=== PATIENT | female | born 1945 | race Caucasian/White ===

== ENCOUNTER 2017-02-07 10:03 | Outpatient (CLI) | payer MEDICARE, OTHER ==
--- NOTE | 2017-02-12 18:27 | MMO ---
BILATERAL SCREENING MAMMOGRAM: DATE: 02/07/2017 COMPARISON: Reference made to prior mammograms dating back to March 2010. The exam is interpreted with the assistance of computer-aided detection. FINDINGS: There are scattered fibroglandular elements bilaterally. There are numerous lymph nodes present zev aterally, benign in morphology. There are benign-appearing calcifications within the breasts bilate rally. No new dominant mass, suspicious clustering of microcalcifications, or architectural distort ion. IMPRESSION: BIRADS 2 - Benign findings. Annual screening mammography recommended. POS: [facility]
== END 2017-02-07 10:04 | disposition home or self-care (01) ==
LOC: MAMMO 10:03
PROVIDERS: ATTEND Family Medicine
DX: Z12.31 Encounter for screening mammogram for malignant neoplasm of breast (principal)
CPT/HCPCS: 77067; G0202

== ENCOUNTER 2021-10-18 10:23 | Outpatient (CLI) | payer MEDICARE | END 2021-10-18 10:24 | disposition home or self-care (01) | LOC: BICMAMMO 10:23 | PROVIDERS: ATTEND Student in an Organized Health Care Education/Training Program | DX: Z12.31 Encounter for screening mammogram for malignant neoplasm of breast (principal); Z13.820 Encounter for screening for osteoporosis; M81.0 Age-related osteoporosis without current pathological fracture; Z78.0 Asymptomatic menopausal state; M85.851 Other specified disorders of bone density and structure, right thigh; M85.852 Other specified disorders of bone density and structure, left thigh | CPT/HCPCS: 77063; 77067; 77080 ==

== ENCOUNTER 2024-03-10 13:07 | Outpatient (CLI) | payer MEDICARE | END 2024-03-10 13:08 | disposition home or self-care (01) | LOC: BICMAMMO 13:07 | PROVIDERS: ATTEND Family Medicine | DX: Z12.31 Encounter for screening mammogram for malignant neoplasm of breast (principal); Z78.0 Asymptomatic menopausal state; M81.0 Age-related osteoporosis without current pathological fracture | CPT/HCPCS: 77063; 77067; 77080 ==